=== PATIENT | female | born 1995 | race Caucasian/White ===

== ENCOUNTER 2019-01-24 01:11 | Emergency (ER) | payer OTHER ==
[~2019-01-24] VITALS: Ht 160 cm; Wt 51.7 kg
[~2019-01-24 01:11] MED LIST: ALBUTEROL2.5 MG/31 INH; FLAGYL500 MG PO; MEDROLDOSEPACK PO; NEBULIZER MISCELL; PREDNISONE 10 M10 MG PO; SINGULAIR 10 MG10 M1 PO; VENTOLIN HFA 1818 GM INH
[2019-01-24] MEDS ORDERED: DIPHENHIST50 MG PO (02:12)
[2019-01-24] MEDS ORDERED: EPIPEN 2-P0.3 MG/0.3 IM (02:12)
[2019-01-24] MEDS ORDERED: PREDNISONE50 MG PO (02:12)
[2019-01-24 03:25] VITALS: BP 111/65
== END 2019-01-24 03:25 | disposition home or self-care (01) ==
LOC: M.ERS 01:11
DX: T78.1XXA Other adverse food reactions, not elsewhere classified, initial encounter (principal); R11.10 Vomiting, unspecified; X58.XXXA Exposure to other specified factors, initial encounter; J45.909 Unspecified asthma, uncomplicated; F17.210 Nicotine dependence, cigarettes, uncomplicated

== ENCOUNTER 2019-03-13 19:20 | Emergency (ER) | payer OTHER ==
[~2019-03-13] VITALS: Ht 160 cm; Wt 52.2 kg
[~2019-03-13 19:20] MED LIST changes: +DIPHENHIST50 MG PO; +EPIPEN 2-P0.3 MG/0.3 IM; +PREDNISONE50 MG PO
[2019-03-13] MEDS ORDERED: PREDNISONE50 MG PO (20:32)
[2019-03-13] MEDS ORDERED: PROAIR HFA8.5 GM INH (20:32)
[2019-03-13 20:42] VITALS: BP 123/74
== END 2019-03-13 20:42 | disposition home or self-care (01) ==
LOC: M.ERS 19:20
DX: J06.9 Acute upper respiratory infection, unspecified (principal); J45.909 Unspecified asthma, uncomplicated; F17.210 Nicotine dependence, cigarettes, uncomplicated

== ENCOUNTER 2019-05-04 21:56 | Emergency (ER) | payer OTHER ==
[~2019-05-04] VITALS: Ht 170.2 cm; Wt 59.0 kg
[~2019-05-04 21:56] MED LIST changes: +PROAIR HFA8.5 GM INH
[2019-05-04 22:19] LABS: URINE BILIRUBIN NEGATIVE (Negative); URINE BLOOD NEGATIVE (Negative); URINE CLARITY CLEAR; URINE COLOR YELLOW; URINE GLUCOSE-RANDOM NEGATIVE (Negative); URINE KETONES NEGATIVE (Negative); URINE LEUKOCYTES-REFLEX NEGATIVE (Negative); URINE NITRITE-REFLEX NEGATIVE (Negative); URINE PROTEIN NEGATIVE (Negative); URINE SPECIFIC GRAVITY <= 1.005 (1.005-1.030); URINE UROBILINOGEN 0.2 E.U./dl (0.2-1.0)
[2019-05-04 23:17] VITALS: BP 103/64
== END 2019-05-04 23:18 | disposition home or self-care (01) ==
LOC: M.ERS 21:56
PROVIDERS: Emergency Medicine
DX: Z32.02 Encounter for pregnancy test, result negative (principal); J45.909 Unspecified asthma, uncomplicated; F17.210 Nicotine dependence, cigarettes, uncomplicated; F10.10 Alcohol abuse, uncomplicated

== ENCOUNTER 2021-09-16 19:10 | Emergency (ER) | payer BC, MEDICAID ==
[~2021-09-16] VITALS: Ht 160 cm; Wt 54.4 kg
[2021-09-16] MEDS ORDERED: VAZALORE325 MG PO (19:23)
[2021-09-16] MEDS ORDERED: ZPAK PO (20:08)
[2021-09-16] MEDS ORDERED: PREDNISONE 20 M20 MG PO (20:08)
[2021-09-16 20:33] LABS: INFLUENZA A ANTIGEN Negative (Negative); INFLUENZA B ANTIGEN Negative (Negative)
[2021-09-16 21:00] VITALS: BP 120/87
== END 2021-09-16 21:00 | disposition home or self-care (01) ==
LOC: M.ERS 19:10
PROVIDERS: Physician Assistant
DX: J20.9 Acute bronchitis, unspecified (principal); Z20.822 Contact with and (suspected) exposure to COVID-19; J45.909 Unspecified asthma, uncomplicated; F17.210 Nicotine dependence, cigarettes, uncomplicated; Z79.899 Other long term (current) drug therapy; Z79.82 Long term (current) use of aspirin